=== PATIENT | female | born 1995 | race African-American/Black ===

== ENCOUNTER 2017-01-09 20:15 | Emergency (ER) | payer OTHER ==
[~2017-01-09] VITALS: Ht 167.6 cm; Wt 79.4 kg
[2017-01-09] MEDS ORDERED: NO MEDICATIONS (21:14)
[2017-01-09 22:17] LABS: URINE SOURCE CLEAN CATCH
[2017-01-09 22:19] LABS: URINE APPEARANCE CLEAR; URINE BILIRUBIN NEG (NEG); URINE BLOOD NEG (NEG); URINE COLOR YELLOW; URINE GLUCOSE NEG (NORM); URINE LEUKOCYTE ESTERASE NEG (NEG); URINE NITRATE NEG (NEG); URINE PH 5.5 (5-8); URINE PROTEIN NEG (NEG); URINE UROBILINOGEN 0.2 MG/DL (NORM)
[2017-01-09 22:20] LABS: MICRO INDICATED? NO; URINE KETONE 2+ (NEG)
== END 2017-01-09 23:01 | disposition home or self-care (01) ==
LOC: SED 20:15
DX: O21.0 Mild hyperemesis gravidarum (principal); O99.511 Diseases of the respiratory system complicating pregnancy, first trimester; Z3A.09 9 weeks gestation of pregnancy; J45.909 Unspecified asthma, uncomplicated
CPT/HCPCS: 36415; 81003; 96361; 96374; 99284; J2405